=== PATIENT | female | born 1950 | race Hispanic/Latino ===

== ENCOUNTER 2017-03-09 22:52 | Observation (INO) | payer MEDICARE ==
--- NOTE | 2017-03-09 23:09 | ED PDOC ---
Arrival/HPI - General Chief Complaint: Palpitations Time Seen by Provider: 03/09/17 22:54 Historian: Patient - History of Present Illness Narrative History of Present Illness (Text): 03/09/17 23:00 Yolanda Latham is a 66 year old female, whose past medical history includes brain aneurysm, hypertension, hyperlipidemia, GERD, presents to the Emergency department complaining of left sided chest discomfort and palpitations today. Patient denies shortness of breath, headache, fever, chills cough, nausea, vomiting, diarrhea, diaphoresis, jaw pain, lower extremity pain/swelling, smoking, trauma or any other complaints. Symptom Onset: Gradual Symptom Course: Unchanged Activities at Onset: Light Context: Home Past Medical History - Provider Review Nursing Documentation Reviewed: Yes - Infectious Disease Hx of Infectious Diseases: None - Tetanus Immunization Tetanus Immunization: Unknown - Cardiac Hx Pacemaker: No - Neurological Hx Paralysis: No - Renal Hx Kidney Stones: Yes (right removed in 1977) - Hematological/Oncological Hx Blood Transfusions: No Hx Blood Transfusion Reaction: No - Musculoskeletal/Rheumatological Hx Musculoskeletal Disorders: No - Gastrointestinal Hx Gastrointestinal Disorders: Yes (barretts esophagus) Hx Gastroesophageal Reflux: Yes Other/Comment: colon polyp removed - Psychiatric Hx Emotional Abuse: No Hx Physical Abuse: No Hx Substance Use: No - Surgical History Hx Inguinal Hernia Repair: Yes (left x2) - Anesthesia Hx Anesthesia Reactions: No Hx Malignant Hyperthermia: No - Suicidal Assessment Feels Threatened In Home Enviroment: No Family/Social History - Physician Review Nursing Documentation Reviewed: Yes Family/Social History: Unknown Family HX Smoking Status: Never Smoked Hx Alcohol Use: No Hx Substance Use: No Hx Substance Use Treatment: No Allergies/Home Meds Allergies/Adverse Reactions: Allergies No Known Allergies Allergy (Verified 09/27/15 17:10) Home Medications: Home Meds Medication Instructions Recorded Confirmed Levetiracetam [Keppra] 500 mg PO DAILY 04/07/12 03/10/17 Gabapentin 300 mg PO DAILY 08/22/12 03/10/17 Ramipril 5 mg PO DAILY 08/30/14 03/10/17 Simvastatin 20 mg PO HS 08/30/14 03/10/17 Ranitidine HCl [Sunmark Acid 150 mg PO DAILY 03/10/17 03/10/17 Manager Assessment] hydrOXYzine HCl [Atarax] 10 mg PO HS 03/10/17 03/10/17 Review of Systems - Physician Review All systems were reviewed & negative as marked: Yes - Review of Systems Constitutional: Normal. absent: Fatigue, Fevers Eyes: Normal. absent: Vision Changes Respiratory: Normal. absent: SOB Cardiovascular: Chest Pain (left sided chest discomfort ), Palpitations. absent : Edema Gastrointestinal: Normal. absent: Abdominal Pain Skin: Normal. absent: Rash Neurological: Normal. absent: Headache, Dizziness, Focal Weakness, Speech Changes Endocrine: Normal. absent: Diaphoresis Hemo/Lymphatic: Normal Psychiatric: Normal Physical Exam Vital Signs Reviewed: Yes Vital Signs Temp Pulse Resp BP Pulse Ox 03/10/17 01:35 85 16 152/76 H 99 03/09/17 22:55 98.1 F 84 18 151/76 H 99 Temperature: Afebrile Blood Pressure: Normal Pulse: Regular Respiratory Rate: Normal Appearance: Positive for: Well-Appearing, Non-Toxic, Comfortable Pain Distress: None Mental Status: Positive for: Alert and Oriented X 3 - Systems Exam Head: Present: Atraumatic, Normocephalic Pupils: Present: PERRL. No: Sluggish, Non-Reactive Extroacular Muscles: Present: EOMI Conjunctiva: Present: Normal. No: Injected, Icteric Mouth: Present: Moist Mucous Membranes. No: Dry Neck: Present: Normal Range of Motion Respiratory/Chest: Present: Clear to Auscultation, Good Air Exchange. No: Respiratory Distress, Accessory Muscle Use Cardiovascular: Present: Regular Rate and Rhythm, Normal S1, S2. No: Murmurs Abdomen: Present: Normal Bowel Sounds. No: Tenderness, Distention, Peritoneal Signs Back: Present: Normal Inspection Upper Extremity: Present: Normal Inspection. No: Cyanosis, Edema Lower Extremity: Present: Normal Inspection. No: Edema Neurological: Present: GCS=15, CN II-XII Intact, Speech Normal Skin: Present: Warm, Dry, Normal Color. No: Rashes Psychiatric: Present: Alert, Oriented x 3, Normal Insight, Normal Concentration Medical Decision Making ED Course and Treatment: 03/09/17 23:02 Impression: 66 year old female presents to the Emergency department complaining of left sided chest discomfort and palpitation. Plan: -- EKG -- Labs -- Cardiac enzymes -- Chest X-ray -- Aspirin -- Reassess and disposition Prior Visits: Notes and results from previous visits were reviewed. On 09/27/15 patient presented to the Emergency department complaining of chest pain. Patient was diagnosed with atypical chest pain and was discharged home after treatment. Progress Notes: 03/09/17 23:10 EKG: Ordered, reviewed, and independently interpreted the EKG. Rate : 99 BPM Rhythm : NSR Interpretation : Non-specific T-wave changes. 03/10/17 01:20 Chest X-Ray reviewed, shows no acute processes. 03/10/17 01:[address] Brooks, who is aware and agrees with plan. Patient will go to Telemetry Observation for chest pain. Request Dr. Lechuga on consult. - Lab Interpretations Lab Results: 03/09/17 23:26 03/09/17 23:26 Lab Results 03/09/17 23:26: WBC 11.6 H D, RBC 4.55, Hgb 12.7, Hct 39.3, MCV 86.4, MCH 27.9, MCHC 32.3, RDW 14.3, Plt Count 165, MPV 10.1 03/09/17 23:26: Sodium 141, Potassium 4.1, Chloride 102, Carbon Dioxide 30, Anion Gap 13, BUN 30 H, Creatinine 0.9, Est GFR ( Amer) > 60, Est GFR ( Non-Af Amer) > 60, Random Glucose 135 H, Calcium 9.8, Total Bilirubin 0.6, AST 31, ALT 39, Alkaline Phosphatase 82, Lactate Dehydrogenase 515, Total Creatine Kinase 64, Troponin I < 0.01, Total Protein 7.3, Albumin 4.5, Globulin 2.9, Albumin/Globulin Ratio 1.6 03/09/17 23:26: PT 10.7, INR 0.98, APTT 32.0 I have reviewed the lab results: Yes - RAD Interpretation Radiology Orders: 03/10/17 00:23 CHEST PORTABLE [RAD] Stat Senior Biostatistician: ED Physician - EKG Interpretation Interpreted by ED Physician: Yes Type: 12 lead EKG - Medication Orders Current Medication Orders: Discontinued Medications Aspirin (Aspirin) 325 mg PO ONCE STA Stop: 03/09/17 23:26 Last Admin: 03/10/17 00:00 Dose: 325 mg - Scribe Statement The provider has reviewed the documentation as recorded by the Vick Johnson training under Aicha Jimenes. All medical record entries made by the Scribe were at my direction and personally dictated by me. I have reviewed the chart and agree that the record accurately reflects my personal performance of the history, physical exam, medical decision making, and the department course for this patient. I have also personally directed, reviewed, and agree with the discharge instructions and disposition. Disposition/Present on Arrival - Present on Arrival Any Indicators Present on Arrival: No History of DVT/PE: No History of Uncontrolled Diabetes: No Urinary Catheter: No History of Decub. Ulcer: No History Surgical Site Infection Following: None - Disposition Have Diagnosis and Disposition been Completed?: Yes Diagnosis: Chest pain Disposition: HOSPITALIZED Disposition Time: 01:30 Condition: STABLE
[2017-03-09 23:44] LABS: HEMATOCRIT 39.3 % (36.0-48.0); MEAN CELL VOLUME 86.4 fl (80.0-105.0); MEAN CORPUSCULAR HEMOGLOBIN 27.9 pg (25.0-35.0); MEAN CORPUSCULAR HGB CONC 32.3 g/dl (31.0-37.0); MEAN PLATELET VOLUME 10.1 fl (7.0-11.0); RED CELL DISTRIBUTION WIDTH 14.3 % (11.5-14.5); WHITE BLOOD COUNT 11.6 10^3/ul (4.5-11.0)
[2017-03-09 23:50] LABS: INR 0.98 (0.93-1.08)
[2017-03-09 23:52] LABS: ALB/GLOB RATIO 1.6 (1.1-1.8); ALKALINE PHOSPHATASE 82 U/L (38-126); ALT/SGPT 39 U/L (7-56); AST/SGOT 31 U/L (14-36); BILIRUBIN,TOTAL 0.6 mg/dL (0.2-1.3); BLOOD UREA NITROGEN 30 mg/dL (7-21); CALCIUM 9.8 mg/dL (8.4-10.5); CARBON DIOXIDE 30 mmol/L (21-33); CHLORIDE 102 mmol/L (98-107); GFR AFRICAN-AMERICAN > 60; GLUCOSE,RANDOM 135 mg/dL (70-110); POTASSIUM 4.1 mmol/L (3.6-5.0); SODIUM 141 mmol/L (132-148); TOTAL PROTEIN 7.3 g/dL (5.8-8.3)
[2017-03-10 00:03] LABS: TROPONIN I < 0.01 ng/mL
[2017-03-10 03:56] VITALS: BMI 30.4
--- NOTE | 2017-03-10 08:48 | RAD ---
HISTORY: chest pain COMPARISON: Chest x-ray performed 09/27/15 TECHNIQUE: Chest, one view. FINDINGS: LUNGS: Mild bibasilar atelectasis. No focal consolidation. Please note that chest x-ray has limited sensitivity for the detection of pulmonary masses. PLEURA: No significant pleural effusion identified. No definite pneumothorax . CARDIOVASCULAR: Cardiomegaly. Dense atherosclerotic calcification of the aortic knob. OSSEOUS STRUCTURES: Scoliosis. VISUALIZED UPPER ABDOMEN: Unremarkable. OTHER FINDINGS: None. IMPRESSION: Mild bibasilar atelectasis. Cardiomegaly. Dense atherosclerotic calcification of the aorta.
[2017-03-10 11:04] LABS: HEMATOCRIT 41.4 % (36.0-48.0); MEAN CELL VOLUME 86.6 fl (80.0-105.0); MEAN CORPUSCULAR HEMOGLOBIN 27.8 pg (25.0-35.0); MEAN CORPUSCULAR HGB CONC 32.1 g/dl (31.0-37.0); MEAN PLATELET VOLUME 10.2 fl (7.0-11.0); RED CELL DISTRIBUTION WIDTH 14.3 % (11.5-14.5); WHITE BLOOD COUNT 8.2 10^3/ul (4.5-11.0)
[2017-03-10 11:30] LABS: BASO # 0.01 K/mm3 (0.0-2.0); BASO % 0.1 % (0.0-3.0); GRAN # 6.45 (1.4-6.5); GRAN % 79.9 % (50.0-68.0); LYMPH % 12.3 % (22.0-35.0); MONO # 0.6 (0.1-0.6); MONO % 7.7 % (1.0-6.0)
[2017-03-10 12:37] LABS: PH,URINE 6.5 (4.7-8.0); URINE APPEARANCE SL CLOUDY (CLEAR); URINE BILIRUBIN NEGATIVE (NEGATIVE); URINE BLOOD TRACE-INTACT (NEGATIVE); URINE COLOR YELLOW (YELLOW); URINE GLUCOSE (UA) NEGATIVE (NEGATIVE); URINE KETONE NEGATIVE (NEGATIVE); URINE LEUKOCYTE ESTERASE SMALL Leu/uL (NEGATIVE); URINE PROTEIN NEGATIVE mg/dL (<30 mg/dL); URINE UROBILINOGEN 0.2 E.U./dL (<1 E.U./dL)
[2017-03-10 12:40] LABS: URINE BACTERIA MANY (NEG); URINE RBC 0 - 2 /hpf (0-2); URINE WBC 25 - 30 /hpf (0-6)
--- NOTE | 2017-03-10 16:05 | CARD ---
APPROVED REPORT EKG Measurement Heart [id number] HI [id number] [id number] <Conclusion> Normal sinus rhythm Nonspecific T wave abnormality Abnormal ECG
--- NOTE | 2017-03-10 22:55 | CON ---
CARDIOLOGY CONSULTATION DATE: 03/10/2017 Cardiology consultation (to Dr. Lechuga). HISTORY: The patient is a 66-year-old woman who presents with shakes which may be consistent with chills. Did a question of palpitations. The patient apparently had a similar episode in the past where it was found to be bacteremic in nature. The patient has known previous cardiac history. Her cardiac risk factors includes hypercholesterolemia. No previous myocardial infarction. No hypertension. No diabetes mellitus. SOCIAL HISTORY: The patient does not smoke. REVIEW OF SYSTEMS: Reviewed. PHYSICAL EXAMINATION: VITAL SIGNS: Blood pressure is 129/77, heart rates in the 70s. NECK: Negative JVD. LUNGS: Without rales. HEART: With S1 and S2. EXTREMITIES: Without edema. LABORATORY EXAMINATION: EKG is unremarkable. Troponins are negative x3. The hemoglobin is 12.7 with a white count is elevated to 11.6. IMPRESSION: 1. Questionable shaking chills. 2. Questionable palpitations. 3. No evidence for acute coronary syndrome. 4. Hypercholesterolemia. 5. We will need to rule out sepsis. PLAN: Given these findings, we will obtain an echocardiogram to evaluate her LV function and look at her valvular structures. In the morning, we will transfer the care back to Dr. Lechuga. Angus Alex MD
--- NOTE | 2017-03-10 23:43 | HP ---
CHIEF COMPLAINT: Fever, chills, tremor, and atypical chest discomfort. HISTORY OF PRESENT ILLNESS: A 66-year-old female with history of hypertension, hyperlipidemia, history of cerebral aneurysm who presented to the emergency room with complaints of sudden onset of left chest shaking, tremor and chills, radiating all over the body with some chest discomfort. Chills lasted 10 minutes. Patient decided to come to the emergency room. Patient denied any shortness of breath, cough, cold symptoms, dysuria, or diarrhea. PAST MEDICAL HISTORY: Significant for hypertension, hyperlipidemia, chronic pleuritis, history of ruptured cerebral aneurysm, history of sepsis with E. coli 2 years ago, urinary retention. PAST SURGICAL HISTORY: Significant for neurosurgical evacuation of the cerebral aneurysm, Jainism; history of vein stripping. ALLERGIES: SHE HAS NO KNOWN ALLERGIES. PRESENT MEDICATIONS: Keppra 500 mg in the morning, gabapentin 300 at night for seizure prevention, ramipril 5 mg daily, simvastatin 20 mg daily, hydroxyzine as needed for . FAMILY HISTORY: Significant for father's side stroke, mother from colitis. SOCIAL HISTORY: Patient denies any smoking, alcohol, or drug use. Patient is retired. Patient is . She lives with her . Patient is independent of activity of daily living. REVIEW OF SYSTEMS: She denies any fever, but has body chills. Denies any blurry vision, eye pain, or discharge. She denies any nasal congestion, sore throat, or dysphagia. She denies any cough, shortness of breath, or wheezing. She denies any heart palpitations, but complains of some atypical chest discomfort. Denies any diaphoresis. Patient denies any abdominal pain, nausea, vomiting, diarrhea, melena, or hematemesis. She complains of intermittent heartburn symptoms. Patient denies any dysuria, hematuria, flank pain, or urinary retention symptoms at the present time. She denies any seizures, weakness, or paresthesia. Patient denies any joint pains, joint swelling, or erythema. Patient denies any anxiety or depression symptoms. PHYSICAL EXAMINATION: VITAL SIGNS: Temperature on admission 98.1; her blood pressure was slightly elevated 151/76, back to normal after rechecked 135/80; pulse 84; respiratory rate 18; and oxygen saturation 99% on room air. GENERAL: Patient is comfortable, alert, awake, oriented. HEENT: Head is normocephalic, atraumatic. Eyes with pupils reactive to light. No jaundice. Nose, no congestion. Oral mucosa is moist. There are some dental changes. NECK: Supple. No neck masses, no JVD, no lymphadenopathy. LUNGS: Clear to auscultation. HEART: Regular rhythm and rate. No heart murmur. ABDOMEN: Soft, nontender, nondistended. No CVA tenderness. EXTREMITIES: With no edema, cyanosis, or clubbing. DIAGNOSTIC TESTS: CBC with WBC 11.6, hemoglobin 12.7, hematocrit 39.3, and platelet count 165,000. Chemistry: Normal electrolytes. Her BUN is 30, creatinine 0.9, random glucose 135. Liver enzymes are normal. Her troponin was negative. Chest x-ray showed no acute lung pathology. There is cardiomegaly and dense calcification of the aorta. EKG showed normal sinus rhythm, rate 99 per minute, nonspecific T-wave abnormalities. ASSESSMENT: A 66-year-old female with: 1. Episode of sudden onset of chills and some atypical chest discomfort with mild leukocytosis and nonspecific changes in her EKG, must rule out sepsis. 2. Hypertension. 3. Hyperlipidemia. PLAN OF TREATMENT: Case discussed with senior enterprise architect. I will keep patient in observation. We will do septic workup with urine and blood cultures. I will ask for procalcitonin at evaluation. We will do echocardiogram to rule out any endocarditis possibility. We will maintain patient on her chronic medications Keppra, gabapentin and ramipril. We will monitor closely. Apolonia Chavez MD
[2017-03-11 06:12] VITALS: RESP 19; TEMP 98.4; O2SAT 96
[2017-03-11 07:20] LABS: BASO # 0.01 K/mm3 (0.0-2.0); BASO % 0.2 % (0.0-3.0); GRAN # 4.67 (1.4-6.5); GRAN % 72.8 % (50.0-68.0); HEMATOCRIT 38.3 % (36.0-48.0); LYMPH # 1.1 (1.2-3.4); LYMPH % 17.2 % (22.0-35.0); MEAN CELL VOLUME 85.1 fl (80.0-105.0); MEAN CORPUSCULAR HEMOGLOBIN 27.1 pg (25.0-35.0); MEAN CORPUSCULAR HGB CONC 31.9 g/dl (31.0-37.0); MEAN PLATELET VOLUME 10.1 fl (7.0-11.0); MONO # 0.6 (0.1-0.6); MONO % 9.8 % (1.0-6.0); RED CELL DISTRIBUTION WIDTH 14.6 % (11.5-14.5); WHITE BLOOD COUNT 6.4 10^3/ul (4.5-11.0)
[2017-03-11 08:03] LABS: ALB/GLOB RATIO 1.4 (1.1-1.8); ALKALINE PHOSPHATASE 74 U/L (38-126); ALT/SGPT 31 U/L (7-56); AST/SGOT 26 U/L (14-36); BILIRUBIN,TOTAL 0.6 mg/dL (0.2-1.3); BLOOD UREA NITROGEN 30 mg/dL (7-21); CALCIUM 9.3 mg/dL (8.4-10.5); CARBON DIOXIDE 25 mmol/L (21-33); CHLORIDE 105 mmol/L (98-107); CHOLESTEROL 142 mg/dL (130-200); GFR AFRICAN-AMERICAN > 60; GLUCOSE,RANDOM 100 mg/dL (70-110); POTASSIUM 4.1 mmol/L (3.6-5.0); SODIUM 140 mmol/L (132-148); TOTAL PROTEIN 7.1 g/dL (5.8-8.3)
[2017-03-11] MEDS ORDERED: cefTRIAXone 1 gm 1 GM/100 ML BAG IVPB SCH (10:00)
[2017-03-11] MEDS ORDERED: Aminophylline 25 mg/ml Inj ONE (10:53)
[2017-03-11 13:42] VITALS: BP 135/76
--- NOTE | 2017-03-11 15:54 | CARD ---
APPROVED REPORT Protocol: CHRISTOPHER Attending Physician: Dr. Prabhakar Cota Referring Physician: Dr. ROBERTS Test Indications: Chest Pain Height:5 ft 0 in Weight:156lbs Medications: PEPCID, NEURONTIN, KEPPRA, ALTACE Medical History: 66 YEAR OLD FEMLAE WITH A H/O HTN, HIGH CHOLESTEROL, CHOLECYSTECTOMY, GERD, INGUINAL HERNIA REPAIR, BRAIN ANEURYSM REPAIR Target HR: 152 bpm Resting ECG: RSR. Resting Heart Rate: 66 bpm Resting Blood Pressure: 118/70mmHg Submaximum (85%): 129 bpm PROCEDURE Pharmacologic stress testing was performed using 0.4mg per 5ml of regadenoson given intravenously over 7-10 seconds. POST EXERCISE Reason for Termination: Protocol completed Target HR: No Max HR: 67 bpm 61% of Maximum Predicted HR: 152 bpm Exercise duration: 00:32 min:sec, 0 Stage Exercise capacity: 1.0METs Max Blood Pressure: 128/64mmHg Blood Pressure response to exercise: normal resting BP - appropriate response Heart Rate response to exercise: appropriate Chest Pain: No, none Angina index: 0 Arrhythmia: No, none ST Change: No, none Deviation: 0 mm INTERPRETATION Stress EKG Conclusion: IV LEXISCAN NUCLEAR STRESS TEST WHICH WAS NEGATIVE FOR CHEST PAIN AND NEGATIVE FOR ST-T CHANGES. NUCLEAR SCAN REPORT PENDING. Signed by Prabhakar Cota Electronically Approved: 03/11/2017 12:11:42 EXAM: Myocardial Perfusion REST/STRESS Stress Test Type: Pharmacologic Imaging Protocol Rest Spect myocardial perfusion imaging was performed in supine position 45 minutes following the injection of 10.7 mCi of Tc-99 Myoview. At peak stress, the patient was injected intravenously with 30.8mCi of Tc-99 tetrofosmin after an infusion time of 0 minutes and 10 seconds. Gated Stress Spect was performed 75 minutes after intravenous Tc-99 Myoview injection. The images were gated to evaluate regional wall motion and calculate ventricular ejection fraction.Images were reconstructed using backfilter projection method in short horizontal and verticle long axis. Spect slices were generated. LV Perfusion The quality of the study is good. The left ventricle is normal in size. The right ventricle is unremarkable. The lung uptake is within normal limits. The distribution of tracer reveals normal uptake pattern throughout the LV myocardium on the stress study. The rest myocardial perfusion study shows no significant change. Wall Motion Wall motion study shows good contractility of the left ventricle. LVEF = 67%. Conclusion 1. Normal SPECT myocardial perfusion study. 2. Normal gated wall motion of the left ventricle. 3. In comparison with the last study of 09/07/2014, there is no significant change
[2017-03-11 17:10] VITALS: PULSE 96
--- NOTE | 2017-03-11 17:27 | CARD ---
APPROVED REPORT EXAM: Two-dimensional and M-mode echocardiogram with Doppler and color Doppler. INDICATION Chest Pain Palpitations 2D DIMENSIONS Left Atrium (2D)3.7 (1.6-4.0cm)IVSd0.9 (0.7-1.1cm) LVDd3.7 (3.9-5.9cm)PWd1.1 (0.7-1.1cm) LVDs2.5 (2.5-4.0cm)FS (%) 33.4 % LVEF (%)62.9 (>50%) M-Mode DIMENSIONS Aortic Root2.90 (2.2-3.7cm)Aortic Cusp Exc.1.70 (1.5-2.0cm) Aortic Valve AoV Peak Yleiamrn124.0cm/Greg Peak GR.5mmHg Mitral Valve MV E Mmmofwbd31.3cm/sMV A Djjwwpyg21.5cm/sE/A ratio0.7 TDI Lateral E' Peak V6.43cm/sMedial E' Peak V6.63cm/sE/Lateral E'8.0 E/Medial E'7.7 Pulmonary Valve PV Peak Hxwozqmx96.8cm/sPV Peak Grad.1mmHg Tricuspid Valve TR Peak Fncthyqd963vq/sRAP HFSVMCIT12mdHnCM Peak Gr.21mmHg [id number] LEFT VENTRICLE The left ventricle is normal size. There is normal left ventricular wall thickness. The left ventricular function is normal.EF-60-65% There is normal LV segmental wall motion. Transmitral Doppler flow pattern is Grade III-reversible restrictive diastolic dysfunction. No left ventricle thrombus noted on this study. There is no ventricular septal defect visualized. There is no left ventricular aneurysm. There is no mass noted in the left ventricle. RIGHT VENTRICLE The right ventricle is normal size. There is normal right ventricular wall thickness. The right ventricular systolic function is normal. ATRIA The left atrium size is normal. The right atrium size is normal. The interatrial septum is intact with no evidence for an atrial septal defect. AORTIC VALVE The aortic valve is thickened but opens well. There is trace aortic regurgitation. There is no aortic valvular stenosis. There is no aortic valvular vegetation. MITRAL VALVE The mitral valve is thickened but opens well. Mitral annular calcification is mild. Mitral regurgitation is trace. There is no mitral valve stenosis. There is no evidence of mitral valve prolapse. TRICUSPID VALVE The tricuspid valve leaflets are thickened , but open well. There is trace tricuspid regurgitation.RVSP-31 mmof Hg. There is no tricuspid valve stenosis. There is no tricuspid valve prolapse or vegetation. PULMONIC VALVE The pulmonary valve is normal in structure. There is trace pulmonic valvular regurgitation. There is no pulmonic valvular stenosis. GREAT VESSELS The aortic root is normal in size. The ascending aorta is normal in size. The pulmonary artery is normal. The IVC is normal in size and collapses >50% with inspiration. PERICARDIAL EFFUSION There is no pleural effusion. There is no pericardial effusion. <Conclusion> Normal Chamber Size; EF-60-65% Trace MR/TR/AR/PI RVSP-31 mmof Hg.
--- NOTE | 2017-03-11 20:12 | PN ---
DATE: 03/11/2017 REASON FOR CONSULTATION: Followup. Shaking of the body, chest discomfort, cardiac evaluation. SUBJECTIVE: The patient denies any chest pain, shortness of breath, denies any palpitation. OBJECTIVE: GENERAL: Not in apparent distress. VITAL SIGNS: As follows: Temperature afebrile, heart rate 72, blood pressure 135/76. HEENT: PERRLA. Extraocular muscles intact. NECK: Supple. No carotid bruits or thyromegaly. CHEST: Clear to auscultation. HEART: S1 and S2, regular. ABDOMEN: Soft. EXTREMITIES: Clubbing and cyanosis negative. LABORATORY DATA: Blood workup as follows: WBC , hemoglobin 12.2, hematocrit 38.0, platelet count 160. Chemistry shows sodium 140, potassium 4.0, chloride 105, carbon dioxide 25, anion gap of 14, BUN 13, creatinine 0.9. TSH 4.26. Troponin 0.012. EKG shows normal sinus. No acute ST-T wave changes noted. IMPRESSION: A 66-year-old female with past medical history of hypertension, gastroesophageal reflux, some seizure disorder, hyperlipidemia, admitted with shaking of the body and some chest discomfort, right to left, and then whole body started shaking. Rule out coronary artery disease. The patient is cleared for echo and stress test. Today, we will keep n.p.o. Further recommendation after the stress test. We will follow with you. The patient admitted with elevated WBC count, repeat blood count is normal. So far, 24 hours, the blood cultures are negative. RECOMMENDATIONS: Resume previous medications. We will follow with you. Further recommendation after the stress test. Prabhakar Lechuga MD
[2017-03-11] MEDS ORDERED: Amoxicillin-Clav 875-125 mg Tab PO SCH (22:00)
--- NOTE | 2017-03-12 16:35 | DS ---
HISTORY OF PRESENT ILLNESS: Patient was admitted for a new onset of body shake and across the chest with anterior chest tightness. Patient is feeling much better. She denies any chest pain this morning. Denies shortness of breath. PHYSICAL EXAMINATION: VITAL SIGNS: Patient is afebrile with temperature 98.4 this morning. Her pulse is 72, blood pressure 115/60, respiratory rate 20, and oxygen saturation 99% on room air. GENERAL: Patient is comfortable. Alert, awake, oriented. HEENT: Head is normocephalic and atraumatic. Eyes with pupils reactive to light. No jaundice. Oral mucosa is moist. NECK: Supple. LUNGS: Clear to auscultation. HEART: With regular rhythm and rate. ABDOMEN: Soft, nontender, nondistended. EXTREMITIES: With no edema. No calf tenderness. NEUROLOGIC: Normal. SKIN: Clean DIAGNOSTIC TEST: Today showed normal CBC with WBC 6.4, hemoglobin 12.2, and hematocrit 38.3. Chemistry with normal electrolytes. BUN 30, creatinine 0.9. Normal liver enzymes. Her troponin was negative on admission. Her procalcitonin was indeterminate at 0.9. She had cardiology evaluation and a myocardial stress test was done today, which was normal. Echocardiogram showed normal left ventricle function with ejection fraction 60% to 65%. Trace mitral and tricuspid regurgitation. There are no signs of vegetation on cardiac valves. Her urine culture grew gram-negative rods. The final report is still pending. Blood cultures are negative after 24 hours. ASSESSMENT: 1. Atypical chest pain. Acute coronary syndrome was ruled out with normal nuclear stress test and grossly normal echocardiogram. 2. Chills with no signs of acute infection with 24-hours blood cultures negative and no fever. 3. Urinary tract infection, growing gram-negative rods. 4. Hypertension. 5. Hyperlipidemia. PLAN OF TREATMENT: Patient was discharged home in stable condition. Patient was started on Augmentin 850 mg twice a day for 7 days. Patient was maintained on her chronic medications, Keppra, gabapentin, ramipril and simvastatin. Patient was advised to follow up with primary care doctor this week. We will monitor and follow up the cultures. Apolonia Chavez MD [facility] # [id number]
== END 2017-03-11 17:51 | disposition home or self-care (01) ==
LOC: ED 22:52 → ERH 03-10 01:32 → 3RSO 03-10 02:48
PROVIDERS: ADMIT Family Medicine; ATTEND Family Medicine
DX: R07.89 Other chest pain (principal); E78.00 Pure hypercholesterolemia, unspecified; I10 Essential (primary) hypertension; K21.9 Gastro-esophageal reflux disease without esophagitis; G40.909 Epilepsy, unspecified, not intractable, without status epilepticus; D72.829 Elevated white blood cell count, unspecified; Z82.3 Family history of stroke
CPT/HCPCS: 36415; 71010; 78452; 80053; 80061; 81001; 82550; 83036; 83615; 83735; 84100; 84145; 84443; 84484; 85025; 85027; 85610; 85651; 85730; 87040; 87086; 93005; 93017; 93306; 99285; A9502; G0378; J0696

== ENCOUNTER 2017-07-12 08:57 | Day surgery (SDC) | payer MEDICARE ==
[2017-07-01 12:12] VITALS: BMI 28.7
[2017-07-12] MEDS ORDERED: Propofol 10 mg/ml Inj (20 ML) ONE (10:37)
[2017-07-12 12:55] VITALS: BP 136/74; PULSE 65; RESP 14; TEMP 98.3; O2SAT 99
== END 2017-07-12 13:15 | disposition home or self-care (01) ==
LOC: ENDO 08:57
PROVIDERS: ATTEND Internal Medicine Gastroenterology
DX: K63.5 Polyp of colon (principal); K62.1 Rectal polyp; K57.30 Diverticulosis of large intestine without perforation or abscess without bleeding; K29.50 Unspecified chronic gastritis without bleeding; K21.9 Gastro-esophageal reflux disease without esophagitis; K44.9 Diaphragmatic hernia without obstruction or gangrene; K64.8 Other hemorrhoids
CPT/HCPCS: 43239; 45380; 88305; 88312; 88342; J2001; J2704; J7040

== ENCOUNTER 2018-03-18 09:32 | Day surgery (SDC) | payer MEDICARE ==
[2018-03-17 11:17] VITALS: BMI 27.9
[2018-03-18] MEDS ORDERED: Bupivacaine 0.5% 50 ML IJ ONE ×2 (12:25→12:55)
[2018-03-18] MEDS ORDERED: Lidocaine 1% w Epi 1:100,000 Inj ONE (12:28)
[2018-03-18] MEDS ORDERED: Propofol 10 mg/ml Inj (20 ML) ONE (12:53)
[2018-03-18] MEDS ORDERED: Midazolam 2 MG/2 ML VIAL ONE (12:54)
[2018-03-18] MEDS ORDERED: Rocuronium 10 mg/ml (5 ml) ONE (12:55)
[2018-03-18] MEDS ORDERED: Glycopyrrolate 0.2 mg/ml (2ml vial) ONE (13:25)
[2018-03-18] MEDS ORDERED: Neostigmine Methylsulfate 3mg/3ml Syringe IV ONE (13:25)
[2018-03-18] MEDS ORDERED: HYDROmorphone 0.5 mg/0.5 ml ISec IVP PRN ×2 (14:03→16:29)
--- NOTE | 2018-03-18 14:03 | PCM.ANESB1 ---
Interscalene Block - Brachial Plexus Date of Procedure: 03/18/18 Anesthesiologist: chandan Pre-Procedure Diagnosis: rotator cuff tear Post-Procedure Diagnosis: same Procedure Performed: Interscalene Block of Brachial Plexus Right - Procedure Interscalene Block of Brachial Plexus: This procedure was explained to the patient that it is for post-operative pain management. Consent was obtained after a thorough discussion with the patient regarding the benefits and possible complications of local anesthetic block of the Brachial Plexus at the Interscalene area. The patient was brought to the Operating Room and standard monitors were applied. Time out was held with the circulating nurse to confirm the correct surgery and appropriate block. After completion of the procedure, the patient's head was gently rotated away from the _right operative shoulder and the anterior scalene groove was carefully palpated. The ultrasound transducer was then applied to the skin in the transverse plane and the brachial plexus was visualized lateral to the carotid artery and in between the anterior and middle scalene muscles. After identification,the anterior lateral portion of the neck was prepped with Betadine solution three times. At this point, a # 22 gauge Stimuplex 2 inches insulated needle was inserted into the interscalene groove and directed in a cau caro and midline direction. The needle was inserted lateral to the ultrasound transducer in-plane towards the brachial plexus in a [id number] direction. Needle advancement was performed carefully under direct ultrasound visualization. After repeated negative aspiration,_20____cc of___0.5% bupivicaine was injected. The needle was removed intact and sterile dressing was applied. The patient had stable vital signs, tolerated the interscalene block of the bracheal plexus well with stable vital signs and was extubated and taken to the PACU stable
[2018-03-18] MEDS ORDERED: Lactated Ringer's 1,000 ML IV SCH (14:15)
[2018-03-18] MEDS ORDERED: Oxycodone/Acetaminophen 5/325 mg Tab PO PRN (15:00)
--- NOTE | 2018-03-18 15:48 | PCM.SURG1 ---
Surgeon's Initial Post Op Note - Surgeon's Notes Surgeon: Shala Olvera MD Production Service Manager: Scooby Vergara PA-C Type of Anesthesia: General Endo Anesthesia Administered By: Dr. Driscoll Pre-Operative Diagnosis: right shoulder rotator cuff tear Operative Findings: see full note Post-Operative Diagnosis: same Operation Performed: right shoulder arthroscopy with rotator cuff repair with subacromial decompression Specimen/Specimens Removed: none Estimated Blood Loss: EBL {In ML}: 10 Blood Products Given: N/A Drains Used: No Drains Post-Op Condition: Fair Date of Surgery/Procedure: 03/18/18 Time of Surgery/Procedure: 15:46 Addendum Addendum: 03/18/18 15:46 [place] [employer]ER checked today. Patient was given #60 of Tramadol 50mg on March 10 2018. Patient was instructed to take the Tramadol and over the counter Tylenol or Ibuprofen for pain control. Patient was not given a prescription today.
[2018-03-18] MEDS ORDERED: HYDROmorphone 1 mg/ml ISec ONE (16:28)
[2018-03-18] MEDS ORDERED: HYDROmorphone 0.5 mg/0.5 ml ISec ONE (17:38)
[2018-03-18] MEDS ORDERED: Oxycodone/Acetaminophen 5/325 mg Tab ONE (17:46)
[2018-03-18 22:31] VITALS: BP 157/87; PULSE 98; TEMP 98.2; O2SAT 97
[2018-03-19 02:48] VITALS: RESP 20
--- NOTE | 2018-03-19 03:17 | OP ---
PROCEDURE DATE: 03/18/2018 PREOPERATIVE DIAGNOSES: Chronic right shoulder rotator cuff tear and impingement syndrome. POSTOPERATIVE DIAGNOSES: Chronic right shoulder rotator cuff tear and impingement syndrome. PROCEDURES: Right shoulder arthroscopy with arthroscopic cuff repair and subacromial decompression. SURGEON: MD Dr. Wade Lawrence was assisted by Evie Vergara, the physician dental assistant medical assistant. Ms. Vergara was scrubbed and present throughout the entire case and assisted in patient positioning, manipulation of the arthroscope during the repair, as well as wound closure. ANESTHESIA: General. COMPLICATIONS: None. ESTIMATED BLOOD LOSS: 10 mL. INDICATIONS FOR PROCEDURE: This is a 67-year-old female, who presented with long-standing right shoulder pain. Clinical examination consistent with pain with resisted forward flexion and weakness with resisted forward flexion and abduction, positive for Michaels sign, pain to the impingement arc. MRI was consistent with what looked like a full-thickness retracted chronic rotator cuff tear. Recommendations were for right shoulder arthroscopy. The risks, benefits, and alternatives of the procedure were discussed with the patient including the possibility of incomplete repair and the possibility of re-tearing and also the need for further surgery including shoulder replacement and informed consent was obtained. OPERATIVE PROCEDURE: After the surgical site was signed and verified in the preoperative holding area, the patient was taken to the operating room and placed supine on the operating room table. After administration of general anesthesia, the patient received 2 g of Ancef IV. The patient was positioned in the lateral decubitus position with the right shoulder up towards the ceiling. Care was taken to make sure all bony prominences and nerves were well padded and protected. Axillary roll was placed into the left axilla, and the right upper extremity was prepped and draped in the usual sterile fashion. The right upper extremity was positioned in the arthroscopic arm drake with 10-pound retraction. The bony landmarks were identified about the right shoulder. All portal sites were injected with a total of 10 mL of 1% lidocaine with epinephrine. Posterior arthroscopy portal was established, and the arthroscope was inserted into the shoulder joint. The chondral surfaces of the glenoid and the humeral head were noted to have some grade I changes. No full-thickness lesions were appreciated. The anterior rotator interval was identified, and under direct arthroscopic visualization, an anterior portal was established. Biceps tendon was well visualized and appeared to be intact. Anterior labrum was probed and was noted to have little bit of fraying but no detachments. The area that was frayed was debrided with a full radius shaver. The inferior and posterior labrum appeared to be intact. The supraspinatus appeared to have a large full-thickness tear that appeared to have a combination of delamination as well and appeared to be retracted to just medial to the glenoid rim. At this point, the cuff was debrided on the articular side using a full radius shaver. No loose bodies were appreciated. The subscapularis was identified and appeared to be intact. At this point, the arthroscope was inserted into the subacromial space through the posterior portal. A lateral portal was established and a bursectomy was performed which gave us excellent visualization of the undersurface of the acromion as well as the rotator cuff tear. Using the shaver in a dagoberto-like fashion, acromioplasty was performed. At this point, our attention was directed to the rotator cuff. The tendon appeared to be slipped underneath itself, and using a probe, it was reduced. Then, using elevator and full radius shaver, any adhesions on the subacromial side of the cuff were debrided and excised to maximize mobility. At this point, the patient was also noted to have some interstitial tearing almost at the musculotendinous junction in the posterior aspect of the supraspinatus and this area was also debrided. At this point, the cuff was repaired using Emerson [employer]hew rotator cuff tape, passed in a mattress-like fashion as well as nonabsorbable suture. were then loaded into a knotless anchor and then impacted into the footprint. This brought most of the cuff back down on to its footprint. An attempt was made to pass further sutures anteriorly; however, the cuff tissue was extremely deficient, so this area was just debridement. Ultimately, approximately 75% to 80% of the cuff was repaired back down to the footprint. Satisfied, the arm was taken through a range of motion. No obvious impediment was appreciated. At this point, all the instruments were removed. All portal sites were closed using interrupted 2-0 Vicryl suture and 3-0 nylon. A sterile dressing was applied, and abduction pillow sling was placed. The patient was awakened from anesthesia and taken to the recovery room in stable condition. Matteo Olvera MD [facility] # [id number]
--- NOTE | 2018-03-19 09:33 | CP.PCM.DIS ---
Provider - Provider Attending physician: Matteo Olvera MD Primary care physician: Apolonia Brooks MD Time Spent in preparation of Discharge (in minutes): 5 Diagnosis - Discharge Diagnosis (1) Rotator cuff arthropathy of right shoulder Status: Acute Hospital Course - Hospital Course Hospital Course: Patient underwent right shoulder arthroscopy with rotator cuff and subacromial decompression yesterday. Patient was admitted for extended recovery due to pain. Patient doing well now. Patient is going to follow up with Dr. Olvera in one week. Patient was instructed to maintain shoulder immobilizer at all times and continue taking her home medications as well as the Tramadol for pain control. Discharge Exam - Head Exam Head Exam: ATRAUMATIC, NORMAL INSPECTION - Respiratory Exam Respiratory Exam: NORMAL BREATHING PATTERN - Cardiovascular Exam Cardiovascular Exam: RRR - Extremities Exam Additional comments: R shoulder: shoulder immobilizer on. Dressings clean dry and intact. +AROM wrist and fingers. Sensation intact to light touch. Grossly NVI distally - Neurological Exam Neurological exam: Alert, CN II-XII Intact, Oriented x3 - Psychiatric Exam Psychiatric exam: Normal Affect, Normal Mood Discharge Plan - Follow Up Plan Patient education suggested?: Yes Referrals: Apolonia Chavez MD [Primary Care Provider] -
== END 2018-03-19 12:16 | disposition home or self-care (01) ==
LOC: SDS 09:32 → 5RNO 20:08 → SDS 03-19 12:16
PROVIDERS: ATTEND Orthopaedic Surgery
DX: M12.811 Other specific arthropathies, not elsewhere classified, right shoulder (principal); M75.101 Unspecified rotator cuff tear or rupture of right shoulder, not specified as traumatic; M75.41 Impingement syndrome of right shoulder
CPT/HCPCS: 29826; 29827; C1713; J0171; J0690; J1170 ×2; J2001; J2250; J2405; J2704; J2710; J3010; J7120 ×2

== ENCOUNTER 2018-08-18 14:07 | Outpatient (CLI) | payer MEDICARE | END 2018-08-18 14:08 | disposition home or self-care (01) | LOC: RAD 14:07 ==